=== PATIENT | male | born 1965 | race Caucasian/White ===

== ENCOUNTER 2017-05-09 13:28 | Day surgery (SDC) | payer OTHER ==
[~2017-05-09] VITALS: Ht 172.7 cm; Wt 68.6 kg
== END 2017-05-09 15:02 | disposition home or self-care (01) ==
LOC: ORSCSDS 13:28
PROVIDERS: Surgery
PROC: 0DJD8ZZ Inspection of Lower Intestinal Tract, Via Natural or Artificial Opening Endoscopic (ICD-10-PCS; principal; 2017-05-09 14:45)
DX: Z12.11 Encounter for screening for malignant neoplasm of colon (principal); L40.50 Arthropathic psoriasis, unspecified; Z79.899 Other long term (current) drug therapy
CPT/HCPCS: J7120

== ENCOUNTER 2024-05-09 11:47 | Day surgery (SDC) | payer OTHER ==
[~2024-05-09] VITALS: Ht 172.7 cm; Wt 71.5 kg
[2024-05-09] MEDS ORDERED: Lactated Ringer's 1,000 ML IV ONE (12:13)
[2024-05-09] MEDS ORDERED: ZYRTEC10 M2 PO (12:15)
[2024-05-09] MEDS ORDERED: ALBU2.5V5 (12:15)
[2024-05-09] MEDS ORDERED: NAPR220 PO (12:17)
[2024-05-09] MEDS ORDERED: EPINEPhrine HCl 1 MG/ML 1ML Amp ONE (13:11)
[2024-05-09] MEDS ORDERED: propofoL 20 ML IV ONE ×2 (13:13)
[2024-05-09] MEDS ORDERED: Dexamethasone Sod Phos 10 MG/ML 1ML VIAL ONE (13:14)
[2024-05-09] MEDS ORDERED: Ondansetron HCl 2 MG / ML 2ML Vial ONE (13:14)
[2024-05-09] MEDS ORDERED: FentaNYL Citrate 50 MCG/ML 2 ML Injection ONE (13:14)
[2024-05-09] MEDS ORDERED: Sodium Chloride 0.9% Inj 10 ML Vial XX ONE (13:42)
[2024-05-09] MEDS ORDERED: Ketorolac Tromethamine 30mg Vial ONE (13:45)
[2024-05-09 15:16] VITALS: BP 126/87
== END 2024-05-09 14:20 | disposition home or self-care (01) ==
LOC: ORSCSDS 11:47
PROVIDERS: Otolaryngology
PROC: 07B10ZX Excision of Right Neck Lymphatic, Open Approach, Diagnostic (ICD-10-PCS; principal; 2024-05-09 14:00)
DX: R59.0 Localized enlarged lymph nodes (principal); J45.909 Unspecified asthma, uncomplicated; Z79.899 Other long term (current) drug therapy
CPT/HCPCS: 87102; 87116; 88184; 88185; 88305; 88341; 88342; J0171; J1100; J1885; J2405; J2704; J3010